=== PATIENT | female | born 1985 | race Two or more races ===

== ENCOUNTER 2018-09-20 13:43 | Emergency (ER) | payer OTHER ==
[~2018-09-20] VITALS: Ht 162.6 cm; Wt 86.2 kg
[2018-09-20 15:28] VITALS: BP 109/73
[2018-09-20] MEDS ORDERED: TETANUS-DIPTH-ACEL PERTUSSIS 0.5ML SYRG IM ONE (16:15)
== END 2018-09-20 16:42 | disposition home or self-care (01) ==
LOC: ER 13:43
DX: S61.452A Open bite of left hand, initial encounter (principal); W54.0XXA Bitten by dog, initial encounter; Y93.89 Activity, other specified; Y99.8 Other external cause status; Y92.89 Other specified places as the place of occurrence of the external cause
CPT/HCPCS: 73130; 90471; 90715